=== PATIENT | male | born 1975 | race Caucasian/White ===

== ENCOUNTER 2020-02-08 20:15 | Emergency (ER) | payer OTHER ==
[~2020-02-08] VITALS: Ht 157.5 cm; Wt 65.8 kg
[2020-02-08 20:22] VITALS: BP 172/106; Ht 157.5 cm; Wt 65.8 kg
== END 2020-02-08 21:09 | disposition other institution (70) ==
LOC: ED 20:15
DX: Z02.89 Encounter for other administrative examinations (principal)